=== PATIENT | female | born 1935 | race Caucasian/White ===

== ENCOUNTER 2019-03-23 15:43 | Observation (INO) ==
[2019-03-23] MEDS ORDERED: ZOFRAN IV PRN (16:00)
[2019-03-23] MEDS ORDERED: SALINE LOCK IV FLUID XX ONE (16:00)
[2019-03-23] MEDS ORDERED: TYLENOL PO PRN (16:00)
[2019-03-23] MEDS ORDERED: NITROGLYCERIN SL PRN (16:07)
[2019-03-23] MEDS ORDERED: MORPHINE IV PRN (16:07)
--- NOTE | 2019-03-23 17:37 | Diag Imaging Result Doc PS360 ---
EXAM: CHEST-2 VIEWS 03/23/2019 HISTORY: Chest Pain TECHNIQUE: PA and lateral chest COMMENT: There is no evidence of acute cardiac or pulmonary disease. The inspiration is better than on 03/16/2017. Otherwise are has been no significant change. IMPRESSION: No acute disease. Electronically signed by Giuseppe Hernandes 03/23/2019 5:35 PM
[2019-03-23] MEDS: ASPIRIN PO SCH (17:52)
--- NOTE | 2019-03-23 19:46 | HISTORY AND PHYSICAL ---
CHIEF COMPLAINT: Chest tightness. HISTORY OF PRESENT ILLNESS: The patient is an 83-year-old white female followed in my medical practice. She comes in complaining of some tightness across the chest that has been fairly constant today. She has had some pains off and on recently the last few days. She also has noted some dizziness and lightheaded feeling. In fact, says she bent over to feed her dog yesterday morning and fell forward onto her face. She has been sleeping a lot and she has had some cold intolerance. MEDICATIONS: She is on 5 mg Ziac q.a.m. No other medicines. ALLERGIES: Codeine, Motrin, and amoxicillin. PAST MEDICAL HISTORY: 1. Hypertension, diagnosed 2001. 2. Hypercholesterolemia, diagnosed 2007. 3. Depression with anxiety, with patient refusing medication. PAST SURGICAL HISTORY: 1. BRIA and BSO in 1981. 2. Appendectomy. 3. Right cataract removal, July 2012. 4. Left cataract removal, November 2012. IMMUNIZATIONS: Pneumovax 23 given in 2004 and again in November 2017. Prevnar 13 given February 2015. Fluzone given January 2019. FAMILY HISTORY: Notable for her biological mother with [place] at age 89. Sister with ovarian cancer. She is adopted and raised by her grandmother. Has limited knowledge of her family history. SOCIAL HISTORY: The patient is x2. She is caregiver for her who has pronounced Alzheimer's dementia. 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 She has 2 children and 1 adopted child. She quit smoking in 1989, but has a 14 pack year history of smoking. REVIEW OF SYSTEMS: Negative except as above. PHYSICAL EXAMINATION: VITAL SIGNS: Weight 124, which is down about 6 pounds in the past 3 months. Height 5 feet tall. Blood pressure 128/60, pulse 102, BMI 25. Blood pressure lying down is 122/62, standing is 112/54. Pulse in the 60s to 70s. GENERAL: Elderly white female in no acute distress. SKIN: Warm and dry. No rashes. No bruising over the face. HEENT: PERRL. EOMI. Sclerae anicteric. Oropharynx: No redness. Tongue in the midline. NECK: No LA, TMG, JVD, or bruits. CV: RRR. No murmur. LUNGS: CTA. BACK: No point tenderness. ABDOMEN: Soft, nontender, nondistended. No mass. No HSM. BREASTS/PELVIC/RECTAL: Deferred. EXTREMITIES: No calf tenderness, cords, or edema. Mild OA changes noted diffusely. Peripheral pulses 2+ lower extremities. NEUROLOGIC: Cranial nerves 2 through 12 are intact. Nonfocal. EKG shows normal sinus rhythm with nonspecific anterior ST changes. Compared to previous EKG in 2013, she has flipped her T-waves anteriorly. ASSESSMENT: 1. Chest pains. 2. Abnormal electrocardiogram. 3. Hypertension. 4. Hypercholesterolemia. 5. Depression with anxiety. 6. Cold intolerance. 7. Dizziness with recent fall, per report. PLAN: 1. Will admit for 23-hour observation. 2. Check cardiac enzymes and troponin levels serially. 3. Check chest x-ray, CBC, CMP, thyroid function tests, proBNP, PT, PTT. 4. We will leave the patient off her Ziac at this point. 5. Place her on aspirin 325 mg daily. 6. P.r.n. nitroglycerin sublingually. 7. Morphine intravenously as needed for chest discomfort. 8. We will consult Dr. Vladimir Toro, associate professor of chemistry, for evaluation. I have spoken with Dr. Toro briefly regarding the patient. 9. Repeat electrocardiogram in the morning. 10. She is caregiver for her with Alzheimer's dementia, so she is adamant she wants to go home as quickly as possible. cc: Sorin Sung MD
[2019-03-23 21:46] LABS: BASO# 0.03 X1000 (0.0-0.2); BASO% 0.5 % (0.0-0.8); EOS# 0.37 X1000 (0.0-0.7); EOS% 6.2 % (0.0-10.0); HEMATOCRIT 34.4 % (37.0-47.0); HEMOGLOBIN 11.5 g/dL (12.0-16.0); LYMPH# 1.38 X1000 (1.2-3.4); LYMPH% 23.2 % (20.5-51.1); MCH 27.9 PG (27-31); MCHC 33.4 g/dL (33-37); MCV 83.5 FL (81-99); MONO# 0.62 X1000 (0.11-0.59); MONO% 10.4 % (1.7-9.3); MPV 9.6 FL (7.4-10.4); NEUT# 3.56 X1000 (1.4-6.5); NEUT% 59.7 % (42.2-75.2); PLT 361 X1000 (130-400); RBC 4.12 XMIL (4.2-5.4); RDW 13.1 % (11.5-14.5); WBC 5.96 X1000 (4.8-10.8)
[2019-03-23 21:58] LABS: INR 1.12; PROTIME 14.6 Seconds (11.0-16.0)
[2019-03-23 21:59] LABS: PTT 38.4 Seconds (22.3-41.8)
[2019-03-23 22:03] LABS: AGAP 14; ALB/GLOB RATIO 1.5; ALBUMIN 3.5 g/dL (3.5-5.0); ALKALINE PHOSPHATASE 99 U/L (32-104); BUN 11 mg/dL (8-22); CALCIUM 9.1 mg/dL (8.8-10.2); CHLORIDE 96 mmol/L (98-107); COSMO 275; CREATININE 0.7 mg/dL (0.5-0.9); ESTIMATED GFR > 60; GLUCOSE 105 mg/dL (70-104); GOT 22 U/L (10-30); GPT 13 U/L (10-36); POTASSIUM 3.2 mmol/L (3.5-5.1); SODIUM 138 mmol/L (136-145); TCO2 28 mmol/L (25-35); TOTAL BILIRUBIN 0.43 mg/dL (0.20-1.00); TOTAL PROTEIN 5.8 g/dL (6.3-8.3)
[2019-03-23 22:17] LABS: FREE T4 1.18 ng/dL (0.93-1.70); TSH 2.21 uIUmL (0.27-4.20)
[2019-03-23] MEDS ORDERED: KLOR-CON PO ONE (23:01)
[2019-03-24] MEDS ORDERED: PRILOSEC PO SCH (07:00)
[2019-03-24] MEDS: ASPIRIN PO SCH (09:56)
--- NOTE | 2019-03-24 12:28 | EKG Report ---
Test Performed on : 03/24/2019 07:10:23 AM Test Reason : cp Blood Pressure : / mmHG Vent. Rate : 053 BPM Atrial Rate : 053 BPM P-R Int : 172 ms QRS Dur : 072 ms QT Int : 476 ms P-R-T Axes : 055 023 030 degrees QTc Int : 446 ms Sinus bradycardia. Otherwise normal ECG Confirmed by Hebert OLIVERA, Dudley Marshall ([id number]) on 03/26/2019 9:28:22 AM
[2019-03-24 12:56] VITALS: BP 143/43
--- NOTE | 2019-03-24 15:37 | PROGRESS NOTE ---
DATE: 03/24/2019 SUBJECTIVE: Patient denies any chest pains overnight. She is anxious to be discharged home. OBJECTIVE: Afebrile, pulse 51, respirations 14, blood pressure 143/43, O2 saturation 100% on room air.Cardiovascular: RRR without murmur. Lungs: CTA. Extremities: No calf tenderness, cords, or edema. Neurologic: Cranial nerves are intact. No focal deficits. LABORATORY AND DIAGNOSTIC DATA: White count of 5.9, hemoglobin 11.5, platelets 361,000, neutrophils 59, lymphocytes 23, monocytes 10. PT 14.6, INR 1.12, PTT 38.4. CKs were negative x3, being in the 40s. Troponin negative x3, at less than 0.01. TSH normal at 2.21, free T4 of 1.18. CMP unremarkable, except potassium of 3.2, which was repleted with potassium 40 mEq p.o. x1 dose last evening. ProBNP 774. Chest x-ray negative. EKG this morning is fairly normal, except for sinus bradycardia. Minor ST changes on EKG obtained in the office compared to the one in 2014. LDL 159, total cholesterol 206, triglycerides 131, HDL 38. ASSESSMENT: 1. Chest pain. 2. Mildly abnormal EKG. 3. Hypertension. 4. Hypercholesterolemia. 5. Depression with anxiety. 6. Cold intolerance. 7. Dizziness with recent fall. PLAN: Dr. Toro, college scouting coordinator, has not yet evaluated the patient. 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 So, we will plan on discharging the patient home, if okay with Dr. Toro. The nursing staff will contact him prior to discharge. At this point, we will leave her off Ziac, monitor her blood pressure, and recheck her in my office in 3 to 4 weeks. May end up giving her a lower dose of the medication or leaving her off of the antihypertensive permanently. For now, we will discharge her only on aspirin 325 mg daily, and faxed in nitroglycerin 0.4 mg sublingual q.5 minutes x3 p.r.n. chest pain. The patient will follow up with Dr. Toro within the next 2 days regarding possible outpatient evaluation with further testing such as a stress test. She will follow up in my office in 3 to 4 weeks. We will discuss possible addition of statin with the patient outpatient when she returns to my office in 3 to 4 weeks. cc: Sorin Sung MD
--- NOTE | 2019-03-24 18:07 | CARDIOLOGY CONSULTATION ---
DATE: 03/24/2019 CHIEF COMPLAINT: Shortness of breath, chest tightness HISTORY OF PRESENT ILLNESS: Ms. Salas is a 83-year-old female with a history of hypertension, hyperlipidemia. She presented for evaluation of chest tightness to her primary care physician's office. This was also associated with some fatigue. She has not had any exertional component to it. She has felt like she could not get a deep breath. She has been eating out quite a bit as she has a with a significant degree of dementia and she has a hard time making meals for them. She has been eating at [employer] lately. PAST MEDICAL HISTORY: 1. Hypertension. 2. Hyperlipidemia. 3. Depression. SOCIAL HISTORY: She is . Her current has a significant degree of dementia. She does not currently smoke quit in 1989. REVIEW OF SYSTEMS: Ten system review of systems is negative except for those mentioned in HPI. PHYSICAL EXAMINATION: Afebrile. Heart rate 51, blood pressure 143/43.General: She is in no acute distress. HEENT: Oropharynx moist. Normal dentition. Eyes show pink conjunctivae, white sclerae. Neck: Shows no obvious thyromegaly or thyroid tenderness. Cardiovascular: She sounds to be in a regular rate and rhythm. She has no murmurs, she has no S3. She has no lower extremity edema. Chest: Clear bilaterally. She has no increased work of breathing. Abdomen: Soft, nontender, nondistended. She has no obvious organomegaly. Skin: Warm and dry throughout without any rashes. Neurological: Moving all extremities well. She has no lateralizing deficits. PERTINENT DATA: Chest x-ray shows no evidence of any acute disease. EKG shows sinus bradycardia, rate of 53 beats per minute. Her white count is 5.9, hematocrit 34, platelet count 361,000. Her sodium is 138, potassium 3.2, BUN 11, creatinine 0.7. ProBNP was 774. ASSESSMENT: Ms. Salas is an 83-year-old female who presented with atypical chest pain. PLAN: At this point her proBNP was mildly elevated. We will place her on a low dose diuretic, plan on outpatient stress testing and echocardiogram. From my standpoint, she is stable for discharge. cc: MD Sorin Martinez MD
[2019-03-25] MEDS ORDERED: HYDROCHLOROTHIAZIDE PO SCH (09:00)
== END 2019-03-24 15:56 | disposition home or self-care (01) ==
LOC: DIRADM → 1N 16:40
PROVIDERS: ADMIT Family Medicine; ATTEND Family Medicine